=== PATIENT | male | born 1930 | race Caucasian/White ===

== ENCOUNTER 2018-06-27 18:37 | Observation (INO) ==
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
[2018-06-27 19:21] LABS: Hematocrit 40.9 % (42.0-52.0); Hemoglobin 13.1 gm/dL (13.5-18.0); Mean Cell Volume 93.2 fl (78-100); Mean Corpuscular Hemoglobin 29.8 pg (27-31); Mean Platelet Volume 9.4 fl (8-11.3); Neutrophil # 3.8 K/mm3 (1.3-6.0); Neutrophil % 51.4 % (42-75.0); Platelet Count 214 K/mm3 (150-450); Red Blood Count 4.39 M/mm3 (4.7-6.0); Red Cell Distribution Width 13.2 % (11.5-14.0); White Blood Count 7.3 K/mm3 (4.0-10.5)
[2018-06-27 19:34] LABS: Albumin * 3.4 gm/dl (3.4-5.0); Anion Gap 12.7 mmol/L (6.8-13.8); Bilirubin, Total 0.5 mg/dL (0.0-1.1); Ca. Corrected For Albumin 9.3 mg/dL (8.4-10.2); Calcium * 9.1 mg/dL (7.9-10.9); Carbon Dioxide 29.3 mmol/L (24-32.6)
[2018-06-27 20:51] LABS: Urine Appearance Clear (CLEAR); Urine Bacteria None Seen; Urine Bilirubin 1 mg/dl (NEGATIVE); Urine Blood 250 /ul (NEGATIVE); Urine Color Yellow; Urine Ketone Negative (NEGATIVE); Urine Mucus Few - 1+; Urine Nitrite Negative (NEGATIVE); Urine Protein Negative (NEGATIVE); Urine RBC 0-5 /hpf (0-5); Urine Specific Gravity >=1.030 SP.GR. (1.005-1.030); Urine Urobilinogen Normal (NORMAL); Urine WBC None Seen /hpf (0-5); Urine pH 5.5 pH (5.0-7.0)
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
[2018-06-28] MEDS: SERTRALINE HCL 50 MG TABLET PO SCH (08:41)
[2018-06-28] MEDS: LOSARTAN POTASSIUM 50 MG TABLET PO SCH (08:41)
[2018-06-28] MEDS: HALOPERIDOL 5 MG TABLET PO SCH (08:41)
[2018-06-28] MEDS: ASPIRIN 81 MG TABLET.DR PO SCH (08:41)
[2018-06-28] MEDS: LEVOTHYROXINE SODIUM 50 MCG TABLET PO SCH (08:41)
[2018-06-28] MEDS ORDERED: HALOPERIDOL 5 MG TABLET PO ONE (13:09)
[2018-06-28] MEDS: SIMVASTATIN 10 MG TABLET PO SCH (20:11)
[2018-06-29] MEDS: LEVOTHYROXINE SODIUM 50 MCG TABLET PO SCH (07:18)
[2018-06-29] MEDS: LOSARTAN POTASSIUM 50 MG TABLET PO SCH (08:48)
[2018-06-29] MEDS: ASPIRIN 81 MG TABLET.DR PO SCH (08:48)
[2018-06-29] MEDS: HALOPERIDOL 5 MG TABLET PO SCH (08:49)
[2018-06-29] MEDS: ENOXAPARIN SODIUM 40 MG/0.4 ML SYRG SC SCH (08:49)
[2018-06-29] MEDS: SERTRALINE HCL 50 MG TABLET PO SCH (08:49)
[2018-06-29] MEDS ORDERED: HALOPERIDOL 5 MG TABLET PO PRN (11:18)
--- NOTE | 2018-06-29 16:53 | PN ---
Subjective - Date and Time Seen Date: 06/29/18 Time: 12:15 Subjective Narrative: Spencer reports no concerns at this time. He is calm and pleasant. Movement is slow. He speaks only a little. Family reports he is a zombie with the haldol, but it helps his restlessness. Objective - Vitals Vitals: Last Vital Signs Temp 36.8 C 06/29/18 16:18 Pulse 87 06/29/18 16:18 Resp 18 06/29/18 16:18 BP 163/97 H 06/29/18 16:18 Pulse Ox 95 06/29/18 16:18 - Exam Constitutional: Present: Alert, Cooperative, No distress ENT Exam: Present: hearing grossly normal Respiratory: Present: no respiratory distress Skin Exam: Present: normal color, warm/dry, no cyanosis Neurologic: Present: alert Appearance: Present: other - movements are slow Eye contact: Present: decreased rate of speech Assessment/Plan - Problems/Diagnosis (1) Alzheimer's dementia with behavioral disturbance Problem: Acute Qualifiers: Alzheimer's disease onset: late-onset Qualified Code(s): G30.1 - Alzheimer's disease with late onset; F02.81 - Dementia in other diseases classified elsewhere with behavioral disturbance Narrative: Noris is unable to care for him at home due to his progressive dementia and occasional behavioral outburst. He is well controlled on haldol but his responsiveness is slowed. Will try decreasing the dose to find a balance of control of restlessness vs being too neurologically slowed. Patient is unsafe at home to himself and his , looking for placement with dementia unit. No acute medical conditions will change from acute inpatient to observation.
[2018-06-29] MEDS: SIMVASTATIN 10 MG TABLET PO SCH (20:06)
[2018-06-30] MEDS: LEVOTHYROXINE SODIUM 50 MCG TABLET PO SCH (06:57)
[2018-06-30] MEDS: ENOXAPARIN SODIUM 40 MG/0.4 ML SYRG SC SCH (08:19)
[2018-06-30] MEDS: LOSARTAN POTASSIUM 50 MG TABLET PO SCH (08:19)
[2018-06-30] MEDS: ASPIRIN 81 MG TABLET.DR PO SCH (08:19)
[2018-06-30] MEDS: SERTRALINE HCL 50 MG TABLET PO SCH (08:19)
[2018-06-30] MEDS: HALOPERIDOL 1 MG TABLET PO SCH ×2 (08:23→20:05)
[2018-06-30] MEDS: SIMVASTATIN 10 MG TABLET PO SCH (20:05)
--- NOTE | 2018-06-30 23:51 | PN ---
Subjective - Date and Time Seen Date: 06/30/18 Time: 17:15 Subjective Narrative: No concerns today per nursing. Looking at discharge to retirement tomorrow. He has been pleasant and no violent behaviors in the hospital. No fever, chills, nausea, vomiting. Objective - Vitals Vitals: Last Vital Signs Temp 36.4 C 06/30/18 23:42 Pulse 72 06/30/18 23:42 Resp 16 06/30/18 23:42 BP 150/79 H 06/30/18 23:42 Pulse Ox 97 06/30/18 23:42 - Exam Constitutional: Present: Alert, Cooperative. Absent: Oriented x3 ENT Exam: Present: hearing grossly normal Respiratory: Present: lungs clear, normal breath sounds Cardiovascular/Chest: Present: regular rate, rhythm, no murmur Abdomen: Present: Normal bowel sounds, soft, nontender, nondistended Skin Exam: Present: normal color, warm/dry, no cyanosis Assessment/Plan Plan Narrative: He has been doing well with scheduled haldol. He has been a little sedated, decreased dose of haldol to 1mg BID. Will monitor effects. No other changes at this time. - Problems/Diagnosis (1) Alzheimer's dementia with behavioral disturbance Problem: Acute Qualifiers: Alzheimer's disease onset: late-onset Qualified Code(s): G30.1 - Alzheimer's disease with late onset; F02.81 - Dementia in other diseases classified elsewhere with behavioral disturbance
[2018-07-01] MEDS: LEVOTHYROXINE SODIUM 50 MCG TABLET PO SCH (07:11)
--- NOTE | 2018-07-01 08:32 | DS ---
(1) Alzheimer's dementia with behavioral disturbance Problem: Acute Qualifiers: Alzheimer's disease onset: late-onset Qualified Code(s): G30.1 - Alzheimer's disease with late onset; F02.81 - Dementia in other diseases classified elsewhere with behavioral disturbance Description of Stay: Spencer is an 88 yo male with progressive Alzheimer's dementia who has progressively become more dependent on cares at home to the point that his is unable to care for him. He has had some behaviors of aggression at home. He was previously give Haldol 5mg to take at home but his said this made him too much of a zombie, as did 2.5mg daily. If she did not give him any medication though he was often too restless and agitated. As she was no longer comfortable with him at home due to level of care need and concern for his and her safety she brought him to the ER where he was admitted to observation. He was started on Haldol 1mg BID to find a dose that would control restlessness, but not keep him too sedated. This dose appears to do fairly well. He has not had any aggressive behaviors and does not appear too sedated. He was accepted at [facility] and will be discharged there today. He is medically stable and I believe his behaviors are well controlled. Procedures Performed: none Results and Findings: Lab Pending Results 06/27/18 19:20: WBC 7.3, RBC 4.39 L, Hgb 13.1 L, Hct 40.9 L, MCV 93.2, MCH 29.8, MCHC 32.0, RDW 13.2, Plt Count 214, MPV 9.4, Immature Gran % (Auto) 0.30, Immature Gran # (Auto) 0.02, Neutrophils % 51.4, Lymphocytes % 32.1, Monocytes % 6.8, Eosinophils % 8.6 H, Basophils % 0.8, Nucleated RBC % 0.0, Neutrophils # 3.8, Lymphocytes # 2.35, Monocytes # 0.5, Eosinophils # 0.6, Absolute Basophils 0.1 06/27/18 19:20: Sodium 142, Plasma Sodium 143 H, Potassium 4.0, Chloride 104, Carbon Dioxide 29.3, Anion Gap 12.7, BUN 20, Creatinine 1.43 H, Est GFR (Non-Af Amer) 50 L, BUN/Creatinine Ratio 14.0, Random Glucose 137 H, Calcium 9.1, Calcium Adj for Albumin 9.3, Total Bilirubin 0.5, AST 12, ALT 9 L, Alkaline Phosphatase 74, Total Protein 7.0, Albumin 3.4 06/27/18 20:20: Urine Color Yellow, Urine Appearance Clear, Urine pH 5.5, Ur Specific Pearson >=1.030, Urine Protein Negative, Urine Glucose (UA) Negative, Urine Ketones Negative, Urine Blood 250 H, Urine Nitrate Negative, Urine Bilirubin 1 H, Urine Ictotest Positive H, Urine Urobilinogen Normal, Ur Leukocyte Esterase Negative, Urine RBC 0-5, Urine WBC None seen, Ur Epithelial Cells 0-5, Urine Bacteria None seen, Urine Mucus Few - 1+ H, Urine Culture Comments Culture to follow Discharge Location: [facility] Disposition: Intermediate Care Facility ICF Condition: Fair Level of Care: ICF Discharge Activity: Activity as tolerated Discharge Diet: General/regular food Referrals: Mat Valdez DO [Primary Care Provider] - Problem Oriented Discharge Instructions to Patient/Family: Alzheimer Disease, Dementia Additional Patient Instructions (free text): Plans for discharge to [facility]. Prescriptions (Any new or edited meds): Haloperidol [Haldol] 5 mg PO Q6H PRN #60 tab PRN Reason: Anxiety/restlessness Haloperidol [Haldol] 1 mg PO BID #60 tab Complete Home Medications List: Complete Home Medication List: levothyroxine 50 mcg tablet 50 mcg PO DAILY #90 tab 05/31/18 losartan 50 mg tablet 50 mg PO DAILY #90 tab 05/31/18 Aspirin [Aspirin EC] 81 mg PO DAILY 06/27/18 Donepezil HCl 23 mg PO DAILY 06/27/18 Sertraline HCl [Zoloft] 50 mg PO DAILY 06/27/18 Simvastatin [Zocor] 10 mg PO DAILY 06/27/18 Haloperidol [Haldol] 1 mg PO BID #60 tab 07/01/18 Haloperidol [Haldol] 5 mg PO Q6H PRN #60 tab 07/01/18
[2018-07-01] MEDS: ASPIRIN 81 MG TABLET.DR PO SCH (10:01)
[2018-07-01] MEDS: SERTRALINE HCL 50 MG TABLET PO SCH (10:02)
[2018-07-01] MEDS: LOSARTAN POTASSIUM 50 MG TABLET PO SCH (10:02)
[2018-07-01] MEDS: HALOPERIDOL 1 MG TABLET PO SCH ×2 (10:02→20:27)
[2018-07-01] MEDS: ENOXAPARIN SODIUM 40 MG/0.4 ML SYRG SC SCH (10:02)
[2018-07-01] MEDS: SIMVASTATIN 10 MG TABLET PO SCH (20:27)
[2018-07-02] MEDS: LEVOTHYROXINE SODIUM 50 MCG TABLET PO SCH (06:48)
[2018-07-02] MEDS: LOSARTAN POTASSIUM 50 MG TABLET PO SCH (09:29)
[2018-07-02] MEDS: ASPIRIN 81 MG TABLET.DR PO SCH (09:29)
[2018-07-02] MEDS: SERTRALINE HCL 50 MG TABLET PO SCH (09:30)
[2018-07-02] MEDS: HALOPERIDOL 1 MG TABLET PO SCH ×2 (09:30→20:39)
[2018-07-02] MEDS: ENOXAPARIN SODIUM 40 MG/0.4 ML SYRG SC SCH (09:31)
[2018-07-02] MEDS: SIMVASTATIN 10 MG TABLET PO SCH (20:40)
--- NOTE | 2018-07-02 23:50 | PN ---
Subjective - Date and Time Seen Date: 07/02/18 Time: 12:30 Subjective Narrative: No change in condition. Spencer remains calm. He has not had any behavioral issues in the hospital. No nursing concerns. Family is considering taking him home tomorrow. Objective - Vitals Vitals: Last Vital Signs Temp 36.4 C 07/02/18 21:00 Pulse 84 07/02/18 21:00 Resp 16 07/02/18 21:00 BP 107/63 07/02/18 21:00 Pulse Ox 96 07/02/18 21:00 - Exam Constitutional: Present: Alert, Cooperative, No distress Respiratory: Present: lungs clear, normal breath sounds Cardiovascular/Chest: Present: regular rate, rhythm, no murmur Abdomen: Present: Normal bowel sounds, soft, nontender, nondistended Neurologic: Present: no motor/sensory deficits, alert Assessment/Plan Plan Narrative: Spencer is doing well on haldol 1mg BID. He has not been accepted at a dementia unit. However, as his behaviors appear to be well controlled the family feels comfortable taking him home tomorrow. Will plan to discharge to home tomorrow on his current medication regimen. - Problems/Diagnosis (1) Alzheimer's dementia with behavioral disturbance Problem: Acute Qualifiers: Alzheimer's disease onset: late-onset Qualified Code(s): G30.1 - Alzheimer's disease with late onset; F02.81 - Dementia in other diseases classified elsewhere with behavioral disturbance
--- NOTE | 2018-07-03 08:55 | DS ---
(1) Alzheimer's dementia with behavioral disturbance Problem: Acute Qualifiers: Alzheimer's disease onset: late-onset Qualified Code(s): G30.1 - Alzheimer's disease with late onset; F02.81 - Dementia in other diseases classified elsewhere with behavioral disturbance Description of Stay: Spencer was admitted due to behavioral problems at home secondary to alzheimer's dementia which has progressed to a point family does not believe they can care for him. He has been on haldol but his stated that she sometimes cuts the 5mg dose or doesn't give the medication because he is too much of a zombie. He was admitted and initially started on 5mg haldol daily but this was then adjusted to 1mg BID which has worked well to keep him from being too sedated and he has not had any behavioral problems while in the hospital. We initially looked into placement into a dementia unit facility but he was not accepted anywhere close due to bed availability. As he was doing better on the medication change family felt comfortable taking him home but will continue to look into admitting him to a dementia facility. Procedures Performed: none Results and Findings: Lab Pending Results 06/27/18 19:20: WBC 7.3, RBC 4.39 L, Hgb 13.1 L, Hct 40.9 L, MCV 93.2, MCH 29.8, MCHC 32.0, RDW 13.2, Plt Count 214, MPV 9.4, Immature Gran % (Auto) 0.30, Immature Gran # (Auto) 0.02, Neutrophils % 51.4, Lymphocytes % 32.1, Monocytes % 6.8, Eosinophils % 8.6 H, Basophils % 0.8, Nucleated RBC % 0.0, Neutrophils # 3.8, Lymphocytes # 2.35, Monocytes # 0.5, Eosinophils # 0.6, Absolute Basophils 0.1 06/27/18 19:20: Sodium 142, Plasma Sodium 143 H, Potassium 4.0, Chloride 104, Carbon Dioxide 29.3, Anion Gap 12.7, BUN 20, Creatinine 1.43 H, Est GFR (Non-Af Amer) 50 L, BUN/Creatinine Ratio 14.0, Random Glucose 137 H, Calcium 9.1, Calcium Adj for Albumin 9.3, Total Bilirubin 0.5, AST 12, ALT 9 L, Alkaline Phosphatase 74, Total Protein 7.0, Albumin 3.4 06/27/18 20:20: Urine Color Yellow, Urine Appearance Clear, Urine pH 5.5, Ur Specific [place] >=1.030, Urine Protein Negative, Urine Glucose (UA) Negative, Urine Ketones Negative, Urine Blood 250 H, Urine Nitrate Negative, Urine Bilirubin 1 H, Urine Ictotest Positive H, Urine Urobilinogen Normal, Ur Leukocyte Esterase Negative, Urine RBC 0-5, Urine WBC None seen, Ur Epithelial Cells 0-5, Urine Bacteria None seen, Urine Mucus Few - 1+ H, Urine Culture Comments Culture to follow Discharge Location: Home Disposition: Home self-care Condition: Fair Discharge Activity: Activity as tolerated Discharge Diet: General/regular food Referrals: Mat Valdez DO [Primary Care Provider] - One Week Problem Oriented Discharge Instructions to Patient/Family: Alzheimer Disease, Dementia Additional Patient Instructions (free text): TCM appointment at [place]. Call [facility] at [phone]. Prescriptions (Any new or edited meds): Haloperidol [Haldol] 5 mg PO Q6H PRN #60 tab PRN Reason: Anxiety/restlessness Haloperidol [Haldol] 1 mg PO BID #60 tab Complete Home Medications List: Complete Home Medication List: levothyroxine 50 mcg tablet 50 mcg PO DAILY #90 tab 05/31/18 losartan 50 mg tablet 50 mg PO DAILY #90 tab 05/31/18 Aspirin [Aspirin EC] 81 mg PO DAILY 06/27/18 Donepezil HCl 23 mg PO DAILY 06/27/18 Sertraline HCl [Zoloft] 50 mg PO DAILY 06/27/18 Simvastatin [Zocor] 10 mg PO DAILY 06/27/18 Haloperidol [Haldol] 1 mg PO BID #60 tab 07/01/18 Haloperidol [Haldol] 5 mg PO Q6H PRN #60 tab 07/01/18
[2018-07-03] MEDS: HALOPERIDOL 1 MG TABLET PO SCH (10:09)
[2018-07-03] MEDS: SERTRALINE HCL 50 MG TABLET PO SCH (10:09)
[2018-07-03] MEDS: LEVOTHYROXINE SODIUM 50 MCG TABLET PO SCH (10:09)
[2018-07-03] MEDS: ASPIRIN 81 MG TABLET.DR PO SCH (10:09)
[2018-07-03] MEDS: LOSARTAN POTASSIUM 50 MG TABLET PO SCH (10:09)
[2018-07-03] MEDS: ENOXAPARIN SODIUM 40 MG/0.4 ML SYRG SC SCH (10:12)
[2018-07-03 10:58] VITALS: BP 136/83
--- NOTE | 2018-07-15 23:31 | PN ---
Subjective - Date and Time Seen Date: 07/01/18 Time: 08:30 Subjective Narrative: Spencer is doing well. He has not had any restlessness and he is alert and not somnolent as he had reportedly been on 2.5mg daily. He has no concerns. He was not accepted at any nursing facility at this point for dementia. Objective - Vitals Vitals: Last Vital Signs Selected Entries 07/01/18 07:07 Temperature 36.7 C Pulse Rate 79 Respiratory Rate 14 Blood Pressure 148/88 O2 Sat by Pulse Oximetry 97 Oxygen Delivery Method Room Air - Exam Constitutional: Present: Alert, Cooperative, No distress Respiratory: Present: lungs clear, normal breath sounds Cardiovascular/Chest: Present: regular rate, rhythm, no murmur Abdomen: Present: Normal bowel sounds, soft, nontender, nondistended Skin Exam: Present: normal color, warm/dry, no cyanosis Lymphatic: Present: no adenopathy Assessment/Plan Plan Narrative: Spencer is doing well since starting Haldol at 1mg BID. He is not overly somnolent but remains calm. He has not had any problems with behaviors while in the hospital. Will continue to look into discharge to dementia unit. - Problems/Diagnosis (1) Alzheimer's dementia with behavioral disturbance Problem: Acute Qualifiers: Alzheimer's disease onset: late-onset Qualified Code(s): G30.1 - Alzheimer's disease with late onset; F02.81 - Dementia in other diseases classified elsewhere with behavioral disturbance
== END 2018-07-03 11:29 | disposition home or self-care (01) ==
LOC: ER 18:37 → MS 21:11 → OBSVTOIN 21:11 → INTOOBSV 21:11 → MS 21:33
PROVIDERS: ADMIT Internal Medicine; ATTEND Family Medicine
CPT/HCPCS: 36415; 80053; 81001; 85025; 87086; 96372; 99285; G0378